=== PATIENT | male | born 1990 | race Caucasian/White ===

== ENCOUNTER 2016-03-18 14:04 | Emergency (ER) | payer BC, OTHER ==
[2016-03-18 14:12] VITALS: BP 167/89
[2016-03-18] MEDS ORDERED: Cyclobenzaprine TAB* 10 MG PO ONE (14:50)
--- NOTE | 2016-03-18 14:50 | ED ---
Neck Pain - HPI Summary HPI Summary: 25 male presents in -[facility] complaining of neck pain after injuring it last night 03/17/16 at work. Patient was sent over from [facility] urgent care. He works at [employer] and was standing below a crate that fell from about 3 feet above him , striking him in his posterior neck. He states he continued working last night until he started to feel pain and then went home. Patient states he iced the area last night and went to bed. When he woke up this morning 03/18/16 he states the pain was much worse upon any movement of his neck. His neck felt very stiff. He describes the pain to be burning and sharp upon any movement of his neck. He tried taking an Aleve today, just prior to arrival and has not had any relief from it yet. He admits to some radiation down to his lower back upon movement. He did not lose consciousness and denies any other injuries/pain from the incident. Does not complain of any loss of sensation or motor deficits. Denies c/p, SOB, nausea, vomiting, and numbness and tingling. - History of Current Complaint Chief Complaint: EDNeckComplaint Stated Complaint: NECK INJURY Hx Obtained From: Patient Onset/Duration Of Injury/Symptoms: Hours Mechanism Of Injury: Blunt Trauma Timing: Constant - with pain worse at times Onset/Duration: Sudden Onset - yesterday 03/17/16 around 10:30pm, Still Present, Worse Since Severity Initially: Mild Severity Currently: Moderate Pain Intensity: 8 Pain Scale Used: 0-10 Numeric Location: Discrete At: - c4 throught c6 cervical region, tenderness on both sides of spine, Radiates To: - down to lower back upon movement Character: Sharp, Dull, Aching Aggravating Factors: Position, Movement Alleviating Factors: Position, Heat, Ice Associated Signs & Symptoms: Positive: Negative. Negative: Swelling, Redness, Bruising, Weakness, Headache, Paresthesia Related History: Occupational Injury - [employer]ICHOL[employer] seems appropriate for complaints - Risk Factors Meningitis Risk Factors: Negative - Allergies/Home Medications Allergies/Adverse Reactions: Allergies Allergy/AdvReac Type Severity Reaction Status Date / Time No Known Allergies Allergy Verified 09/02/14 22:06 PMH/Surg Hx/FS Hx/Imm Hx Previously Healthy: Yes Endocrine/Hematology History: Denies: Hx Diabetes, Hx Thyroid Disease Cardiovascular History: Reports: Hx Hypertension Respiratory History: Denies: Hx Asthma, Hx Chronic Obstructive Pulmonary Disease (COPD) GI History: Denies: Hx Ulcer Infectious Disease History: No Infectious Disease History: Denies: Hx Hepatitis, Hx Human Immunodeficiency Virus (HIV), History Other Infectious Disease, Traveled Outside the [place] in Last 30 Days - Family History Known Family History: Positive: Cardiac Disease, Hypertension, Diabetes - Social History Occupation: Employed Full-time Alcohol Use: None Substance Use Type: Reports: Marijuana Substance Use Comment - Amount & Last Used: occassionally Smoking Status (MU): Never Smoked Tobacco Type: Smokeless Tobacco Amount Used/How Often: 1/2 -1 tin per day Review of Systems Constitutional: Negative Eyes: Negative ENT: Negative Cardiovascular: Negative Respiratory: Negative Gastrointestinal: Negative Genitourinary: Negative Positive: Arthralgia - at neck, Myalgia, Decreased ROM - due to pain Skin: Negative Neurological: Negative Psychological: Normal All Other Systems Reviewed And Are Negative: Yes Physical Exam Triage Information Reviewed: Yes Vital Signs On Initial Exam: Initial Vitals Temp Pulse Resp BP Pulse Ox 98 F 93 16 167/89 100 03/18/16 14:05 03/18/16 14:05 03/18/16 14:05 03/18/16 14:05 03/18/16 14:05 Blood pressure elevated. Patient has high blood pressure and has not yet taken his medication today. Vital Signs Reviewed: Yes Appearance: Positive: Well-Appearing, Well-Nourished, Pain Distress - mild pain distress Skin: Positive: Warm, Skin Color Reflects Adequate Perfusion, Dry Head/Face: Positive: Normal Head/Face Inspection Eyes: Positive: Normal ENT: Positive: Normal ENT inspection, Hearing grossly normal Neck: Positive: Supple, No Lymphadenopathy, Tenderness @ - no ecchymosis or swelling noted. Patient was tender upon palpation of C4-C6 and on both left and right sides of spine. limited ROM due to pain. Respiratory/Lung Sounds: Positive: Clear to Auscultation, Breath Sounds Present Cardiovascular: Positive: Normal, RRR, Pulses are Symmetrical in both Upper and Lower Extremities Musculoskeletal: Positive: Limited @ - flexion, extension of neck. no sensory or motor deficits., Pain @ - posterior neck at the level of C4 through C6. no step-off noted. Neurological: Positive: Normal, Sensory/Motor Intact, Alert, Oriented to Person Place, Time, CN Intact II-III, Reflexes Intact, Normal Gait Psychiatric: Positive: Normal, Affect/Mood Appropriate Diagnostics - Vital Signs Vital Signs Temp Pulse Resp BP Pulse Ox 03/18/16 14:05 98 F 93 16 167/89 100 - Laboratory Lab Statement: Any lab studies that have been ordered have been reviewed, and results considered in the medical decision making process. - CT CT neck CT Interpretation: No Acute Changes - STRAIGHTENING OF THE CERVICAL SPINE, NO EVIDENCE FOR FRACTURE OR SUBLUXATION. CT Interpretation Completed By: Radiologist Neck Course/Dx - Course Course Of Treatment: Patient was given pain medication and muscle relaxer to help with pain and inflammation. CT was ordered of neck and was negative. Patient will be sent home with flexeril and ibuprofen to help with pain/ inflammation and told to follow up with his PCP in the next 5-7days. - Diagnoses Differential Dx/HQI/PQRI: Positive: Cervical Fracture, Dislocation, Sprain, Strain, Trauma Provider Diagnoses: Acute cervical sprain - Physician Notifications Discussed Care Of Patient With: Discussed care with and evaluated by Dr Mcgowan Discharge - Discharge Plan Condition: Good Disposition: HOME Prescriptions: Cyclobenzaprine TAB* [Flexeril TAB*] 10 mg PO BID PRN #14 tab PRN Reason: pain Ibuprofen TAB* [Motrin TAB* 600 MG] 600 mg PO Q8H PRN #14 tab PRN Reason: Pain Patient Education Materials: Muscle Strain (ED), Acute Neck Pain (ED) Forms: *Work Release Referrals: Thuan Akhtar DO [Primary Care Provider] - Additional Instructions: Take medicine as prescribed. Be sure to take with food and do not drive while taking Flexeril, muscle relaxer. Rest, ice and heat the area 2-3 times a day. Follow up with your PCP within the next few days. If symptoms worsen or do not improve seek medical attention promptly.
[2016-03-18] MEDS ORDERED: HYDROcodone/ACETAMIN 5-325 MG* 1 TAB PO ONE (14:53)
--- NOTE | 2016-03-18 14:53 | RAD ---
INDICATION: Trauma, neck pain. COMPARISON: Comparison is made with a prior CT of the cervical spine from November 18, 2008. TECHNIQUE: Contiguous axial sections were obtained from the skull base through the T3 vertebra. Images were reconstructed in the sagittal and coronal planes. FINDINGS: There is straightening of the cervical spine with loss of the normal cervical lordosis. No prevertebral soft tissue swelling or fracture is seen. The intervertebral disc spaces appear maintained. There is no evidence for spinal canal or neural foraminal narrowing. IMPRESSION: STRAIGHTENING OF THE CERVICAL SPINE, NO EVIDENCE FOR FRACTURE OR SUBLUXATION.
--- NOTE | 2016-03-18 16:25 | ED ---
I, Allen,Edwige, scribed for Sarthak Mcgowan MD on 03/18/16 at 1455 . Progress - Progress Note Progress Note: This 25 y/o male presents to ED from [facility] for pain at posterior neck since this morning. Pt reports that 15-20 lb weight was dropped on back of his neck while at his work 2230 PM last night. Pt denies any LOC or immediate pain at the time of injury, but states that pain came on this morning. Pain is described as burning/throbbing and radiating from neck/ shoulder down to back. Pt states pain is worse since C-collar placement at [facility]. PMHx is positive for HTN that is well controlled with atenolol, anxiety, and ADHD. - Results/Orders Results/Orders: CT C-spine -- STRAIGHTENING OF THE CERVICAL SPINE, NO EVIDENCE FOR FRACTURE OR SUBLUXATION. Physical Exam - Summary Physical Exam Summary: The patient is well-nourished in mild pain distress. The skin is warm and dry and skin color reflects adequate perfusion. Neck is in C-collar. Tender at C5-6. There is no neck vein distension. Musculoskeletal: C5-C6 TTP. Positive paraspinal muscle spasm. Extremities are non-tender with full range of motion. No focal weakness or limited ROM with bilat upper extremities. There is good capillary refill. There is no peripheral edema or calf tenderness elicited. Neurological: Patient is alert and oriented to person, place and time. The patient has symmetrical motor strength in all four extremities. Cranial nerves are grossly intact. Deep tendon reflexes are symmetrical and equal in all four extremities. Psychiatric: The patient has an appropriate affect and does not exhibit any anxiety or depression. Triage Information Reviewed: Yes Vital Signs On Initial Exam: Initial Vitals Temp Pulse Resp BP Pulse Ox 98 F 93 16 167/89 100 03/18/16 14:05 03/18/16 14:05 03/18/16 14:05 03/18/16 14:05 03/18/16 14:05 Vital Signs Reviewed: Yes Course/Dx - Course Course Of Treatment: Pt presents to ED with delayed onset of posterior cervical pain after having a 15-20 lb of weight dropped on back on his neck at his work [address] C-spine shows no sign of sublaxation or other acute finding. Pt will be discharged with dx of acute cervical sprain, and work note for him to come back after being cleared by his primary care provider. Pt will be given rx for muscle relaxer, cyclobenzaprine, to control his muscle spasm. - Diagnoses Provider Diagnoses: Acute cervical sprain The documentation as recorded by the Allen gee Soohyun accurately reflects the service I personally performed and the decisions made by me, Sarthak Mcgowan MD.
== END 2016-03-18 15:19 | disposition home or self-care (01) ==
LOC: ED 14:04
DX: S13.4XXA Sprain of ligaments of cervical spine, initial encounter (principal); X58.XXXA Exposure to other specified factors, initial encounter; Y93.9 Activity, unspecified; Y92.9 Unspecified place or not applicable; Y99.9 Unspecified external cause status; M54.2 Cervicalgia
CPT/HCPCS: 72125; 99282; A9270-GY

== ENCOUNTER 2016-09-19 13:36 | Emergency (ER) | payer BC, OTHER ==
[2016-09-19 13:41] VITALS: BP 177/117
--- NOTE | 2016-09-23 11:43 | UC ---
vishal Amor Timothy, scribed for Chel Diaz MD on 09/19/16 at 1354 . Eye Complaint HPI - HPI Summary HPI Summary: Karel Barnes is a 26 yo male presenting to [facility] with self-diagnosed pink eye bilaterally, a plugged right ear, and sore throat causing 2/10 burning ache for the past 3-4 days. He notes on onset of his Sx 3-4 days ago he had a red, spotty rash across his chest. He denies any sores on his hands or feet. he denies any known Hx of [place]. His MHx includes HTN, anxiety, ADHD. - History of Current Complaint Chief Complaint: UCEye Stated Complaint: EYE IRRITATION,CLOGGED EAR,COLD,COUGH Time Seen by Provider: 09/19/16 13:46 Hx Obtained From: Patient Onset/Duration: Gradual Onset, Lasting Days, Still Present Timing: Constant Severity Initially: Moderate Severity Currently: Moderate Pain Intensity: 2 Pain Scale Used: 0-10 Numeric Associated Signs And Symptoms: Positive: Drainage (Purulent) - Allergies/Home Medications Allergies/Adverse Reactions: Allergies Allergy/AdvReac Type Severity Reaction Status Date / Time No Known Allergies Allergy Verified 09/02/14 22:06 PMH/Surg Hx/FS Hx/Imm Hx Previously Healthy: Yes Cardiovascular History: Hypertension Psychological History: Anxiety, Other Other Psychological History: ADHD - Surgical History Surgical History: None - Family History Known Family History: Positive: Cardiac Disease, Hypertension, Diabetes - Social History Alcohol Use: Rare Substance Use Type: None, Marijuana Substance Use Comment - Amount & Last Used: occassionally Smoking Status (MU): Never Smoked Tobacco Type: Smokeless Tobacco Amount Used/How Often: 1/2 -1 tin per day Review of Systems Constitutional: Negative Skin: Rash - chest Eyes: Drainage, Eye Redness ENT: Ear Ache Respiratory: Negative Cardiovascular: Negative Gastrointestinal: Negative Genitourinary: Negative Motor: Negative Neurovascular: Negative Musculoskeletal: Negative Neurological: Negative Psychological: Negative All Other Systems Reviewed And Are Negative: Yes Physical Exam Triage Information Reviewed: Yes Appearance: Well-Appearing, No Pain Distress, Well-Nourished Vital Signs: Initial Vital Signs Temp 98 F 09/19/16 13:38 Pulse 92 09/19/16 13:38 Resp 17 09/19/16 13:38 BP 177/117 09/19/16 13:38 Pulse Ox 99 07/13/17 13:38 Vital Signs Reviewed: Yes Eye Exam: Other - Bilat sclerae injected. L > R. Eyes watery. ENT: Positive: Pharyngeal erythema - posterior. No sores. Airway intact., TM bulging - right TM is erythematous, but intact, TM dull - left is dull gonzalez retracted, Other: - uvula midline Neck exam: Normal Neck: Positive: Supple, No Lymphadenopathy Respiratory Exam: Normal Respiratory: Positive: Chest non-tender, Lungs clear, Normal breath sounds, No respiratory distress Cardiovascular Exam: Normal Cardiovascular: Positive: RRR, Pulses Normal, Brisk Capillary Refill Abdominal Exam: Normal Abdomen Description: Positive: Nontender, No Organomegaly, Soft Bowel Sounds: Positive: Present Musculoskeletal Exam: Normal Musculoskeletal: Positive: Strength Intact Neurological Exam: Normal - nonfocal, grossly intact Psychological Exam: Normal - conversing easily and appropriately Skin Exam: Normal Skin: Negative: rashes Eye Complaint Course/Dx - Course Course Of Treatment: Karel Barnes is a 26 yo male presenting to [facility] with "pink eye" bilaterally with right ear plugging and sore throat for the past few days. Pt medication list reviewed this visit. Pt was counseled that he should return for evaluation if his Sx worsen. His Group A Rapid Strep test is negative. He will be discharged home with pharyngitis and right otitis media. Also noted early pink eye. - Differential Dx/Diagnosis Differential Diagnosis/HQI/PQRI: Other - scleritis Provider Diagnoses: right otitis media, pharyngitis Discharge - Discharge Plan Condition: Stable Disposition: HOME Prescriptions: Azithromyxin NERI (NF) [Z-Neri (Zithromax) 250 mg tabs #6] 2 tab PO .TODAY, THEN 1 DAILY #6 tab Patient Education Materials: Pharyngitis (ED), Otitis Media (ED) Forms: *Work Release Referrals: [facility] [Outside] - 1 Week Additional Instructions: Please follow up with the primary care physician provided regarding your visit to urgent care today. Return to urgent care or the emergency department with any new or recurring symptoms. The documentation as recorded by the vishal gee Timothy accurately reflects the service I personally performed and the decisions made by me, Chel Diaz MD.
== END 2016-09-19 14:48 | disposition home or self-care (01) ==
LOC: UCEAST 13:36
DX: H66.91 Otitis media, unspecified, right ear (principal); J02.9 Acute pharyngitis, unspecified; I10 Essential (primary) hypertension; F41.9 Anxiety disorder, unspecified; F90.9 Attention-deficit hyperactivity disorder, unspecified type; F17.220 Nicotine dependence, chewing tobacco, uncomplicated
CPT/HCPCS: 87651; 99212; G0463

== ENCOUNTER 2016-10-05 20:38 | Emergency (ER) | payer BC ==
[2016-10-05 20:44] VITALS: BP 200/92
--- NOTE | 2016-10-05 20:46 | UC ---
Hand/Wrist HPI - HPI Summary HPI Summary: 26 year old male presents with complains of right wrist/hand pain secondary to a fall. - History Of Current Complaint Chief Complaint: UCUpperExtremity Stated Complaint: HAND,WRIST INJURY Time Seen by Provider: 10/05/16 20:45 - Allergies/Home Medications Allergies/Adverse Reactions: Allergies Allergy/AdvReac Type Severity Reaction Status Date / Time No Known Allergies Allergy Verified 09/02/14 22:06 Home Medications: Home Medications NK [No Home Medications Reported] 10/05/16 [History Confirmed 10/05/16] PMH/Surg Hx/FS Hx/Imm Hx - Surgical History Surgical History: None - Family History Known Family History: Positive: Cardiac Disease, Hypertension, Diabetes - Social History Alcohol Use: Occasionally Substance Use Type: None Substance Use Comment - Amount & Last Used: occassionally Smoking Status (MU): Never Smoked Tobacco Type: Smokeless Tobacco Amount Used/How Often: 1/2 -1 tin per day Review of Systems Constitutional: Negative Skin: Negative Eyes: Negative ENT: Negative Respiratory: Negative Cardiovascular: Negative Gastrointestinal: Negative Genitourinary: Negative Motor: Negative Neurovascular: Negative Musculoskeletal: Myalgia, Other: - right wrist pain right hand pain Neurological: Negative Psychological: Negative All Other Systems Reviewed And Are Negative: Yes Physical Exam Triage Information Reviewed: Yes Vital Signs: Initial Vital Signs Temp 37.1 C 10/05/16 20:40 Pulse 104 10/05/16 20:40 Resp 18 10/05/16 20:40 BP 200/92 10/05/16 20:40 Pulse Ox 100 10/05/16 20:40 Eye Exam: Normal ENT Exam: Normal Dental Exam: Normal Neck exam: Normal Neck: Positive: 1 Respiratory Exam: Normal Cardiovascular Exam: Normal Abdominal Exam: Normal Musculoskeletal: Positive: Other: - right wrist pain right hand pain Neurological Exam: Normal Psychological Exam: Normal Skin Exam: Normal Hand/Wrist Course/Dx - Differential Dx/Diagnosis Provider Diagnoses: right hand sprain. right wrist sprain Discharge - Discharge Plan Condition: Stable Disposition: HOME Patient Education Materials: Hand Sprain (ED), Wrist Sprain (ED) Forms: *Work Release Referrals: Thuan Akhtar DO [Doctor of Osteopathy] - If Needed Derick Gann MD [Medical Doctor] -
[2016-10-05] MEDS ORDERED: Ibuprofen TAB* 400 MG PO ONE (21:26)
--- NOTE | 2016-10-05 21:36 | RAD ---
INDICATION: Right hand and wrist pain after a fall COMPARISON: None. TECHNIQUE: 4 views of the right hand and 3 views of the right wrist were obtained. FINDINGS: The adequately corticated bones are in normal alignment. No significant focal osseous abnormality or fracture is seen. Joint spaces appear maintained. IMPRESSION: No radiographically apparent fracture or dislocation involving the right hand or wrist. If the patient's symptoms persist, follow-up imaging is recommended.
== END 2016-10-05 21:54 | disposition home or self-care (01) ==
LOC: UCEAST 20:38
DX: S63.91XA Sprain of unspecified part of right wrist and hand, initial encounter (principal); S63.501A Unspecified sprain of right wrist, initial encounter; W19.XXXA Unspecified fall, initial encounter; Y93.9 Activity, unspecified; Y92.9 Unspecified place or not applicable; Y99.9 Unspecified external cause status
CPT/HCPCS: 99212; A9270-GY; G0463

== ENCOUNTER 2016-11-04 12:15 | Day surgery (SDC) | payer BC ==
[~2016-11-04 12:15] MED LIST: Acetaminophen TAB* 325 MG PO ONE; Buffered Lidocaine 0.9% SYRIN* 5 ML/SYR SYRINGE INTRADERM ONE; Famotidine IV* 10 MG/ML 2 ML (20 mg) IV ONE; Lidocaine 2% PF * 5 ML VIAL ONE; Midazolam* 1 MG/ML 2 ML VIAL (2 MG) ONE; Ondansetron INJ* 2 MG/ML VIAL IV ONE; Propofol* 10 MG/ML 20 ML BTL IV PUSH ONE; fentaNYL* 50 MCG/ML 2 ML VIAL (100 MCG VIAL) ONE
[2016-11-04] MEDS ORDERED: ceFAZolin 1 GM VIAL(*) ONE (12:47)
[2016-11-04] MEDS ORDERED: ceFAZolin 2 GM PREMIX (*) 50 ML IVPB ONE (12:48)
[2016-11-04] MEDS ORDERED: Ondansetron INJ* 2 MG/ML VIAL ONE ×2 (12:49→16:01)
[2016-11-04] MEDS ORDERED: Acetaminophen TAB* 325 MG ONE (12:50)
[2016-11-04] MEDS ORDERED: Famotidine IV* 10 MG/ML 2 ML (20 mg) ONE (12:50)
[2016-11-04] MEDS ORDERED: fentaNYL* 50 MCG/ML 2 ML VIAL (100 MCG VIAL) ONE ×3 (15:44→17:51)
[2016-11-04] MEDS ORDERED: Midazolam* 1 MG/ML 2 ML VIAL (2 MG) ONE (15:44)
[2016-11-04] MEDS ORDERED: Ketorolac INJ* 30 MG/ML 1 ML VIAL ONE (16:01)
[2016-11-04] MEDS ORDERED: Dexamethasone IV* 4 MG/ML 1 ML (4 MG) ONE (16:01)
[2016-11-04] MEDS ORDERED: fentaNYL* 50 MCG/ML 5 ML VIAL (250 MCG VIAL) ONE (17:51)
[2016-11-04] MEDS ORDERED: DiMENhydriNATE IV* 50 MG/ML VIAL IV PUSH PRN (18:41)
[2016-11-04] MEDS ORDERED: fentaNYL* 50 MCG/ML 2 ML VIAL (100 MCG VIAL) IV PRN (18:41)
[2016-11-04] MEDS ORDERED: Ibuprofen TAB* 400 MG PO PRN (18:41)
[2016-11-04] MEDS ORDERED: HYDROmorphone* 1 MG/ML 1 ML SYR ONE (18:44)
[2016-11-04] MEDS ORDERED: Bupivacaine 0.25% SDV* 30 ML ONE (18:49)
[2016-11-04] MEDS: HYDROmorphone* 1 MG/ML 1 ML SYR IV PRN ×2 (18:55→19:01)
[2016-11-04] MEDS ORDERED: HYDROcodone/ACETAMIN 5-325 MG* 1 TAB ONE (18:57)
[2016-11-04 19:32] VITALS: BP 159/86
--- NOTE | 2016-11-05 05:39 | OP ---
DATE OF OPERATION: 11/04/16 - [facility] DATE OF : 89 SURGEON: Derick Gann MD QUILL MACHINE TENDER: MARTIN Kruse. An assistant director of nursing was needed for the entirety of the procedure to assist with positioning of the arm and retraction. ANESTHESIOLOGIST: Dr. Kiana Sandra. ANESTHESIA: General. PRE-OP DIAGNOSES: 1. Right wrist pain and probable TFCC tear. 2. 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 POST-OP DIAGNOSES: 1. Large peripheral TFCC tear, right wrist. 2. Right middle finger radial sagittal band rupture. PROCEDURE: 1. Right wrist diagnostic arthroscopy 2. Right wrist partial synovectomy 3. Right wrist arthroscopic TFCC debridement 4. Right wrist open TFCC repair 5. Right middle finger extensor tendon centralization with radial sagittal band repair INDICATIONS: Phong had a trauma to the right wrist and which involved a very severe hyperflexion injury which the entirety of his body weight came down on first the MP joint followed by the wrist. He has had ulnar-sided right wrist pain ever since that accident. He has also been in a sling operator extension splint for his metacarpophalangeal joint as it was fairly obvious on clinical exam. He had a closed radial sagittal band rupture of the right middle finger. Despite this, he has been coming out of the splint. He has had persistent extensive tendon instability and radial sagittal band deficiency. He has gotten an MRI, which was equivocal for peripheral tear. I told him that we needed to fix the radial sagittal band and that we would scope the wrist at that time given the severe pain that he was having and if there was a TFCC tear that we would fix that at that time. He understood the risks and benefits through the postoperative course. He wants to proceed with surgery. ESTIMATED BLOOD LOSS: 2 mL. COMPLICATIONS: None. 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 DESCRIPTION OF PROCEDURE: Phong was seen in the preoperative holding area and the correct side, site, and procedure were identified. We came back to the operating room. Anesthesia was induced. The arm was prepped and draped in the usual fashion and formal time-out was performed. I began by placing the arm in the traction tower. The adequate traction was placed on the wrist and then the arm was exsanguinated with the Esmarch and the tourniquet inflated to 250 mmHg. I began by developing the 3/4 portal and the scope was introduced through the 3/4 portal. The radial sided structures all looked fine. There was quite a bit of synovitis ulnarly so I developed the 4/5 portal and placed the shaver in the 4/5 portal and debrided quite a bit of dorsal synovitis along the entirety of the dorsum of the wrist. Once I completed the partial synovectomy, I was able to get the scope over to the ulnar side. There was a fairly significant TFCC tear immediately notable on the dorsal ulnar aspect where it was completely torn off of the capsule and ECU subsheath. The ulnar collateral ligament looked intact. It looked like it still had a deep attachment to the fovea and it was still held down nicely. I went ahead and created a 6R portal and placed a probe and then the shaver through this. I was able to debride the TFCC tear back to nice clean healthy edges. I cut off all the scar tissue and cleaned up the dorsal capsule and prepared to receive TFCC repair. At this point, I thought that the angle was such that it was really going to be difficult to repair this with the TFCC Fast Fix device. I therefore decided that it would be served by an open repair. I went ahead and completed the diagnostic arthroscopy by creating the radial and ulnar mid carpal portals. Both the scapholunate and lunotriquetral intervals were nicely aligned and I was not able to introduce the probe in either interval. At this point, I went ahead and took down the scope equipment and handed off the arthroscopy tower and the equipment. We prepared for the open portion of the procedure. I began by making a curvilinear incision incorporating my 6R portal and my ulnar mid carpal portal. Full thickness flap was raised right off of the extensor retinaculum. I went ahead and opened up the 5th dorsal compartment and mobilized the extensor digiti minimi tendon, this was retracted radially. I then performed an arthrotomy and opened up the DRUJ. When I got distal, I took care to preserve the radial attached origin of the dorsal radioulnar ligament. A transverse arthrotomy was made just proximal to the TFCC and interval between the TFCC and the distal ulna was created with the use of the Oelrichs elevator, it was readily apparent at the deep fibers of the TFCC were still attached to the fovea here. I then made a second transverse arthrotomy distal to the TFCC and I then filled this capsule back and this created excellent visualization. The TFCC tear was readably notable and obvious. At this point, I went ahead and took a 3-0 Ethibond suture and repaired the tear with three 3-0 Ethibond [id number] sutures. This reapproximated the torn edges very nicely. The repair was absolutely watertight and edges were nicely apposed. At this point, I took my 3-0 Ethibond suture and I closed the extensor retinaculum and I irrigated out the wound and the skin closed with 4-0 nylon sutures. I then made a curvilinear incision over the dorsum of the right middle finger metacarpophalangeal joint. A healthy peritenon was identified proximally and then this was followed out distally where it became a dense mass of scar tissue overlying the extensor apparatus. I released the overlying scar tissue from the extensor mechanism. The radial sagittal band was completely scarred in. The extensor tendon was thinning in the subluxated position ulnarly. I went ahead and released the radial sagittal band attenuated healing that had occurred. I debrided it back to what looked like healthy tendinous edges. As it had been a few weeks, the extensor tendon was thinning a little bit subluxated ulnarly and wanted to stay in that position, so I went ahead and released the proximal part of the ulnar sagittal band until I can get the extensor tendon very nicely centralized over the dorsum of the MCP joint. I also had taken a Oelrichs elevator and the knife and developed the interval between the dorsal capsule and at the extensor packer and it was quite adherent scar. Once I had mobilized the extensor tendon and debrided the attenuated area of healing, I went ahead and took a 3-0 Ethibond suture and passed in pants -over-vest fashion 3 stitches to re-approximate the edge of the radial sagittal band and the extensor tendon. The repair was very nice. It centralized the tendon very nicely. I flexed and extended down the MCP joint fully. There was absolutely no subluxation of the extensor tendon. The stitches were holding very nicely. I therefore irrigated out the wound and the skin was closed with 4 -0 nylon suture. The operative sites were all infiltrated with 0.25% plain Marcaine. The great care was taken to protect the arm as we placed the dressing. The wounds were dressed with Xeroform, 4x4s, sterile Webril, and then a sugar-tong splint was placed with the volar flap coming all the way out to the ends of the fingers holding the MCP joint in extension and the IP joint held straight. The tourniquet was deflated during the application of the splint. The hand pinked up immediately. Total tourniquet time was 130 minutes. Once the splint was in place and hardened, he was then woken up and taken to recovery room in stable condition. [id number] #: [id number] JUAN
== END 2016-11-04 19:44 | disposition home or self-care (01) ==
LOC: OREAST 12:15
PROVIDERS: ATTEND Orthopaedic Surgery Hand Surgery
DX: S63.591A Other specified sprain of right wrist, initial encounter (principal); S66.302A Unspecified injury of extensor muscle, fascia and tendon of right middle finger at wrist and hand level, initial encounter; M65.831 Other synovitis and tenosynovitis, right forearm; W18.39XA Other fall on same level, initial encounter; F17.200 Nicotine dependence, unspecified, uncomplicated; Z88.6 Allergy status to analgesic agent; I10 Essential (primary) hypertension
CPT/HCPCS: A9270-GY; J0690; J1100; J1170; J1885; J2250; J2405; J2704; J3010